=== PATIENT | male | born 1935 | race Two or more races ===

== ENCOUNTER 2017-08-22 20:10 | Emergency (ER) | payer SELFPAY ==
[~2017-08-22] VITALS: Ht 172.7 cm; Wt 86.2 kg
--- NOTE | 2017-08-22 20:11 | NUR ---
bb ra for etoh. pt found sleeping on bus bench with bottle of alcohol . Pt received confused, vss
--- NOTE | 2017-08-22 20:54 | NUR ---
PT UNABLE TO CORPORATE FOR CT SCAN, ER WILL CALL WHEN READY.
--- NOTE | 2017-08-22 23:40 | NUR ---
PT WAS TAKEN TO CT
--- NOTE | 2017-08-23 05:10 | NUR ---
pt sleeping in [place]. no signs of distress noted. pt vital signs stable. will cont to monitor pt.
--- NOTE | 2017-08-23 11:56 | NUR ---
PT AWAKE ALERT . NO SIGNS OF DISTREESS. DENIES ANY PAIN
--- NOTE | 2017-08-23 12:08 | NUR ---
CALLED FOR FOOD TRAY
--- NOTE | 2017-08-23 12:14 | NUR ---
PER PT " NO DRUG ALLERGIES NO MEDICAL HISTORY NOT TAKING ANY MEDICATION."
[2017-08-23 13:47] VITALS: BP 110/73
--- NOTE | 2017-08-23 13:47 | NUR ---
Patient discharged to home in stable condition. Written and verbal after care instructions given. Patient verbalizes understanding of instruction. AMBULATORY [facility]
== END 2017-08-23 13:48 | disposition home or self-care (01) ==
LOC: ER 20:12 → EDBD 20:12 → ER 08-23 13:48
DX: F10.129 Alcohol abuse with intoxication, unspecified (principal)
CPT/HCPCS: 36415; 70450-TC; 72125-TC; A4606; G0480; Z7610